=== PATIENT | female | born 1955 | race Caucasian/White ===

== ENCOUNTER 2023-11-18 04:28 | Inpatient (IN) | payer MEDICARE ==
[2023-11-18 06:29] LABS: #Basophils 0.04 10x3/uL (0.0-0.2); %Basophils 0.4 % (0.0-1.0); %Eosinophils 0.8 % (0.0-10.0); %Lymphocytes 17.3 % (21.0-51.0); Hematocrit 43.5 % (36.0-47.0); Hemoglobin 13.9 g/dL (12.0-16.0); Mean Corpuscular Hemoglobin 28.7 pg (27.0-31.0); Mean Corpuscular Volume 89.7 fL (78.0-98.0); Platelet Count 301 10x3/uL (130-400); RBC Distribution Width 15.9 % (11.5-14.5); Red Blood Cell (RBC) Count 4.85 mill/uL (4.20-5.40)
[2023-11-18] MEDS ORDERED: Pantoprazole 40 MG VIAL ONE (06:30)
[2023-11-18] MEDS ORDERED: fentaNYL 50 mcg/mL 1 mL Vial ONE (06:30)
[2023-11-18 06:44] LABS: PTT 25.8 sec (22.9-36.1); Prothrombin Time 13.6 sec (12.0-14.7)
[2023-11-18 06:49] LABS: ALT (SGPT) 20 U/L (8-55); AST (SGOT) 29 U/L (5-34); Albumin 3.5 g/dL (3.4-4.8); Alkaline Phosphatase 77 U/L (40-110); Anion Gap 15 mmol/L (10-20); BUN (Urea Nitrogen) 16 mg/dL (9.8-20.1); Bilirubin, Total 0.2 mg/dL (0.2-1.2); Calc. Creatinine Clearance 0 mL/min (70-130); Calcium 8.4 mg/dL (7.8-10.44); Carbon Dioxide 24 mmol/L (23-31); Chloride 108 mmol/L (98-107); Estimated GFR 96; Globulin 3.2 g/dL (2.4-3.5); Glucose 88 mg/dL (80-115); Lipase 20 U/L (8-78); Magnesium 2.1 mg/dL (1.6-2.6); Potassium 3.9 mmol/L (3.5-5.1); Protein, Total 6.7 g/dL (5.8-8.1); Sodium 143 mmol/L (136-145)
[2023-11-18 06:53] LABS: Troponin I Less than 0.010 ng/mL (< 0.028)
[2023-11-18] MEDS ORDERED: Ondansetron PF 4 MG/2 ML Vial ONE ×3 (08:57→13:46)
[2023-11-18] MEDS ORDERED: Morphine 4 MG/ML VIAL ONE (08:57)
[2023-11-18 09:08] LABS: T4 5.19 ug/dL (4.87-11.72)
[2023-11-18] MEDS ORDERED: Sodium Chloride 0.9% 100 ML ONE (11:47)
[2023-11-18] MEDS ORDERED: cefOXitin 2 GM VIAL ONE (11:47)
[2023-11-18] MEDS ORDERED: Lidocaine 1% PF 5 ML VIAL ONE (11:52)
[2023-11-18] MEDS ORDERED: Rocuronium Bromide 10 MG/ML (10ML VIAL) ONE (11:52)
[2023-11-18] MEDS ORDERED: Dexamethasone 20 MG/5 ML VIAL ONE (11:52)
[2023-11-18] MEDS ORDERED: PROPOFOL 20 ML ONE (11:52)
[2023-11-18] MEDS ORDERED: fentaNYL PF 100 MCG/2 ML SYRINGE ONE (11:53)
[2023-11-18] MEDS ORDERED: SUCCINYLCHOLINE/SOD CL,ISO/PF 200 MG/10 ML SYRINGE FS ONE (12:08)
[2023-11-18] MEDS ORDERED: SUGAMMADEX SODIUM 200 MG/2 ML VIAL ONE (12:45)
[2023-11-18] MEDS ORDERED: Ipratropium/Albuterol 3 ML NEB NEB PRN (12:56)
[2023-11-18] MEDS ORDERED: Ondansetron PF 4 MG/2 ML Vial IVP PRN (12:56)
[2023-11-18] MEDS ORDERED: Promethazine HCl 25 MG/ML VIAL IM PRN ×3 (12:56→16:41)
[2023-11-18] MEDS: Sodium Chloride 0.9% 1,000 ML IV SCH (13:00)
[2023-11-18] MEDS ORDERED: HYDROmorphone 2 MG/ML VIAL SLOW IVP PRN (13:06)
[2023-11-18] MEDS ORDERED: Ondansetron HCl/PF 4 MG/2 ML Vial IVP PRN (13:06)
[2023-11-18] MEDS ORDERED: HYDROmorphone 0.5 MG/0.5 ML SYRINGE ONE ×4 (13:17→14:15)
[2023-11-18] MEDS ORDERED: Fentanyl 250 MCG/5 ML VIAL ONE (13:17)
[2023-11-18] MEDS ORDERED: Labetalol HCl 100 MG/20 ML VIAL ONE (14:15)
[2023-11-18 15:25] LABS: Lactic Acid 0.8 mmol/L (0.5-2.2)
[2023-11-18] MEDS: hydrALAZINE 20 MG/ML VIAL SLOW IVP PRN (16:30)
[2023-11-18] MEDS ORDERED: diphenhydrAMINE 50 MG/ML VIAL IVP PRN (16:41)
[2023-11-18] MEDS ORDERED: diphenhydrAMINE 25 MG CAP PO PRN (16:41)
[2023-11-18] MEDS ORDERED: Naloxone HCl 0.4 mg/ml Vial IV PRN (16:41)
[2023-11-18] MEDS ORDERED: diphenhydrAMINE 50 MG/ML VIAL IM PRN (16:41)
[2023-11-18] MEDS ORDERED: Communication Order-Pharmacy FS SCH (16:45)
[2023-11-18 17:18] VITALS: BMI 25.1
[2023-11-18] MEDS: FENTANYL 500 MCG/10 ML VIAL 2,000 MCG in Sodium Chloride 0.9% 60 ML IV PRN (17:51)
[2023-11-18] MEDS: Sodium Chloride 0.9% 500 ML IV SCH (19:49)
[2023-11-18] MEDS: Famotidine/PF 20 mg/2ml Vial SLOW IVP SCH (21:02)
[2023-11-18] MEDS: Famotidine 20 MG TAB PO SCH (21:02)
[2023-11-18] MEDS: cefOXitin 2 GM in Sodium Chloride 0.9% 100 ML IVPB SCH (21:02)
[2023-11-19 05:50] LABS: #Basophils 0.04 10x3/uL (0.0-0.2); #Eosinphils Less than 0.03 10x3/uL (0.0-0.7); %Basophils 0.3 % (0.0-1.0); %Eosinophils 0.1 % (0.0-10.0); %Lymphocytes 11.7 % (21.0-51.0); %Monocytes 12.8 % (0.0-10.0); %Neutrophils 74.5 % (42.0-75.0); Hematocrit 38.1 % (36.0-47.0); Hemoglobin 11.8 g/dL (12.0-16.0); Mean Corpuscular Hemoglobin 27.9 pg (27.0-31.0); Mean Corpuscular Volume 90.1 fL (78.0-98.0); Mean Platelet Volume 9.3 fL (7.4-10.4); Platelet Count 276 10x3/uL (130-400); RBC Distribution Width 16.5 % (11.5-14.5); Red Blood Cell (RBC) Count 4.23 mill/uL (4.20-5.40)
[2023-11-19 06:08] LABS: Anion Gap 14 mmol/L (10-20); BUN (Urea Nitrogen) 11 mg/dL (9.8-20.1); Calc. Creatinine Clearance 99 mL/min (70-130); Calcium 8.6 mg/dL (7.8-10.44); Carbon Dioxide 26 mmol/L (23-31); Chloride 106 mmol/L (98-107); Estimated GFR 92; Glucose 129 mg/dL (80-115); Potassium 4.1 mmol/L (3.5-5.1); Sodium 142 mmol/L (136-145)
[2023-11-19] MEDS: Ketorolac Tromethamine 30 MG (1 mL) VIAL IVP SCH (07:57)
[2023-11-19] MEDS: Ondansetron PF 4 MG/2 ML Vial IVP PRN (08:00)
[2023-11-19] MEDS: Enoxaparin 40 MG (0.4 mL) SYRINGE SC SCH (08:29)
[2023-11-20] MEDS: Sodium Chloride 0.9% 1,000 ML IV SCH (08:55)
[2023-11-20] MEDS: Bisacodyl 10 MG SUPP PR PRN (11:49)
[2023-11-20 12:19] LABS: Bacteria/HPF None Seen HPF (None Seen); Bilirubin Negative (Negative); Blood, Urine Trace (Negative); CAUTI Indications for Culture Acute Hematuria; Clarity Clear (Clear); Glucose, Urine (Dipstick) Normal (Negative); Ketone, Urine 40 mg/dL (Negative); Leukocyte Negative Leu/uL (Negative); Nitrite Negative (Negative); Protein, Urine (Dipstick) 10 mg/dL (Neg-Trace); RBC/HPF 0-3 HPF (0-3); Squamous Epithelial None Seen HPF (0-3); Urobilinogen Normal mg/dL (Less than 2); WBC/HPF 0-3 HPF (0-3)
[2023-11-20 12:30] LABS: Urine Culture Reflex No No
[2023-11-20] MEDS: LevoFLOXacin 500 mg/D5W 500 MG in Premix 1 BAG IVPB SCH (13:11)
[2023-11-21] MEDS ORDERED: traMADol HCl 50 MG TAB PO PRN (09:13)
[2023-11-21] MEDS ORDERED: Acetaminophen 325 MG TAB PO SCH (09:15)
[2023-11-21] MEDS: traMADol HCl 50 MG TAB PO PRN (11:45)
[2023-11-21] MEDS: Acetaminophen 500 MG TAB PO SCH (18:00)
[2023-11-21] MEDS ORDERED: Amitriptyline HCl 25 MG TAB PO SCH (21:00)
[2023-11-21] MEDS: Amitriptyline HCl 25 MG TAB PO SCH (21:27)
[2023-11-22] MEDS ORDERED: THYROID PORK 180 MG PO SCH (09:00)
[2023-11-22 12:11] VITALS: BP 166/95; TEMP 97.6
== END 2023-11-22 12:05 | disposition home or self-care (01) | DRG 336 ==
LOC: ERS 04:28 → SURG B 14:48
PROVIDERS: ADMIT Surgery; ATTEND Surgery
PROC: 0DN80ZZ Release Small Intestine, Open Approach (ICD-10-PCS; principal; 2023-11-18)
DX: K56.2 Volvulus (principal); K55.9 Vascular disorder of intestine, unspecified; E03.9 Hypothyroidism, unspecified; Z90.49 Acquired absence of other specified parts of digestive tract; Z98.890 Other specified postprocedural states; Z79.899 Other long term (current) drug therapy
CPT/HCPCS: 36415; 71045; 71275; 74177; 80048; 80053; 81001; 83605; 83690; 83735; 83880; 84436; 84443; 84481; 84484; 85025; 85610; 85730; 93005; 96374; 96375; A4314; C9113; J0360; J0694; J1100; J1170; J1650; J1885; J1956; J2270; J2405; J2704; J3010; J3490; J7030; J7050; S0028